=== PATIENT | female | born 1955 | race Caucasian/White ===

== ENCOUNTER 2018-01-14 14:24 | Inpatient (IN) | payer MEDICAID ==
[~2018-01-14] VITALS: Ht 154.9 cm; Wt 78.8 kg
[~2018-01-14 14:24] MED LIST: ACET1TAB12 PO; ASPI-556 PO; CLON2 PO; DIVA500T52 PO; FERR-89 PO; FOLI1 PO; GABA-531 PO; HYDR200T4 PO; LEVAHFA IH; LEVO100T14 PO; LEVO125T95 PO; METH2.5 PO; MIRT15 PO; NACL1 PO; OMEP20 PO
[2018-01-14 14:30] VITALS: BP 118/68
[2018-01-14] MEDS ORDERED: BISACODYL 10 MG RECTAL RECTAL SUPPOSITORY PR PRN (15:00)
[2018-01-14] MEDS ORDERED: SODIUM CHLORIDE 0.9% 1,000 ML IV SCH (15:00)
[2018-01-14] MEDS ORDERED: ONDANSETRON HCL 4 MG/2 ML VIAL IVP PRN (15:00)
[2018-01-14] MEDS ORDERED: MAGNESIUM HYDROXIDE SUSPENSION 30 ML UDCUP PO PRN (15:00)
[2018-01-14] MEDS ORDERED: ACETAMINOPHEN 325 MG TABLET PO PRN (15:00)
[2018-01-14] MEDS ORDERED: MORPHINE SULFATE 2 MG/ML SYRINGE IVP PRN (15:00)
[2018-01-14 16:01] VITALS: BP 121/76
[2018-01-14] MEDS: GABAPENTIN 300 MG CAPSULE PO SCH ×2 (16:17→21:31)
[2018-01-14] MEDS: HEPARIN SODIUM,PORCINE 5,000 UNITS/ML VIAL SQ SCH ×2 (16:17→23:14)
[2018-01-14] MEDS: FERROUS SULFATE 325 MG EC TABLET PO SCH (18:13)
[2018-01-14 18:30] LABS: OSMOLALITY 261 mOS/kg (270-310)
[2018-01-14 18:33] LABS: SODIUM SERUM 126 mmol/L (136-145)
[2018-01-14 20:05] VITALS: BP 122/70
[2018-01-14 20:27] LABS: OSMOLALITY,URINE 127 mOS/kg (50-1200)
[2018-01-14 20:50] LABS: SODIUM,URINE RANDOM 36 mmol/l (20-110)
[2018-01-14 21:07] LABS: CREATININE,URINE RANDOM 6.5 mg/dL (30.0-125.0); PROTEIN,URINE RANDOM < 6 mg/dL (0-11.9)
[2018-01-14] MEDS: DOCUSATE SODIUM 100 MG CAPSULE PO SCH (21:31)
[2018-01-14] MEDS: HYDROXYCHLOROQUINE SULFATE 200 MG TABLET PO SCH (21:32)
[2018-01-14] MEDS: ZOLPIDEM TARTRATE 5 MG TABLET PO PRN (21:35)
[2018-01-14] MEDS: HYDROCODONE/ACETAMINOPHEN 5-325 MG TABLET PO PRN (21:35)
[2018-01-15] VITALS (7 sets, daily range): BP systolic 118–135; BP diastolic 53–80
[2018-01-15] MEDS: OMEPRAZOLE 20 MG CAPSULE PO SCH (06:31)
[2018-01-15] MEDS: LEVOTHYROXINE SODIUM 100 MCG TABLET PO SCH (06:31)
[2018-01-15 07:46] LABS: ANION GAP 5 mmol/L (8-16); CALCIUM, TOTAL 8.6 mg/dL (8.8-10.5); CARBON DIOXIDE 26 mmol/L (22-29); CHLORIDE 94 mmol/L (98-107); GLOMERULAR FILTR. RATE CALC > 60 mL/min (>60); GLUCOSE,RANDOM 81 mg/dL (70-110); SODIUM SERUM 125 mmol/L (136-145); UREA NITROGEN, BLOOD 6 mg/dL (7-18)
[2018-01-15] MEDS: DOCUSATE SODIUM 100 MG CAPSULE PO SCH ×2 (08:35→20:14)
[2018-01-15] MEDS: HEPARIN SODIUM,PORCINE 5,000 UNITS/ML VIAL SQ SCH ×3 (08:36→23:06)
[2018-01-15] MEDS: FOLIC ACID 1 MG TABLET PO SCH (08:36)
[2018-01-15] MEDS: HYDROXYCHLOROQUINE SULFATE 200 MG TABLET PO SCH ×2 (08:36→20:14)
[2018-01-15] MEDS: ASPIRIN 81 MG CHEWABLE TABLET PO SCH (08:36)
[2018-01-15] MEDS: FERROUS SULFATE 325 MG EC TABLET PO SCH ×3 (08:36→17:59)
[2018-01-15] MEDS: GABAPENTIN 300 MG CAPSULE PO SCH ×4 (08:36→20:14)
[2018-01-15] MEDS ORDERED: PANTOPRAZOLE SODIUM 40 MG DR TABLET PO SCH (09:00)
[2018-01-15 12:46] LABS: SODIUM SERUM 127 mmol/L (136-145)
[2018-01-15] MEDS: VENLAFAXINE HCL 75 MG ER CAPSULE PO SCH (13:22)
[2018-01-15] MEDS: SODIUM CHLORIDE 1 GM TABLET PO SCH ×3 (13:23→20:14)
[2018-01-15 13:40] LABS: OSMOLALITY 270 mOS/kg (270-310)
[2018-01-15] MEDS: LORazepam 2 MG TABLET PO PRN ×2 (14:34→23:40)
[2018-01-15 15:23] LABS: SODIUM,URINE RANDOM 107 mmol/l (20-110)
[2018-01-15 15:27] LABS: OSMOLALITY,URINE 370 mOS/kg (50-1200)
[2018-01-15] MEDS: ZOLPIDEM TARTRATE 10 MG TABLET PO PRN (22:16)
[2018-01-16 03:34] VITALS: BP 112/50
[2018-01-16] MEDS: LEVOTHYROXINE SODIUM 100 MCG TABLET PO SCH (06:16)
[2018-01-16] MEDS: OMEPRAZOLE 20 MG CAPSULE PO SCH (06:16)
[2018-01-16] MEDS: LORazepam 2 MG TABLET PO PRN ×3 (06:20→23:09)
[2018-01-16] MEDS: FOLIC ACID 1 MG TABLET PO SCH (07:57)
[2018-01-16] MEDS: DOCUSATE SODIUM 100 MG CAPSULE PO SCH ×2 (07:57→20:18)
[2018-01-16] MEDS: SODIUM CHLORIDE 1 GM TABLET PO SCH ×3 (07:57→20:18)
[2018-01-16] MEDS: VENLAFAXINE HCL 75 MG ER CAPSULE PO SCH ×2 (07:57→09:00)
[2018-01-16] MEDS: HYDROXYCHLOROQUINE SULFATE 200 MG TABLET PO SCH ×2 (07:57→20:18)
[2018-01-16] MEDS: HEPARIN SODIUM,PORCINE 5,000 UNITS/ML VIAL SQ SCH ×3 (07:57→23:07)
[2018-01-16] MEDS: FERROUS SULFATE 325 MG EC TABLET PO SCH ×3 (07:57→18:01)
[2018-01-16] MEDS: GABAPENTIN 300 MG CAPSULE PO SCH ×4 (07:57→20:18)
[2018-01-16] MEDS: ASPIRIN 81 MG CHEWABLE TABLET PO SCH (07:57)
[2018-01-16 08:22] VITALS: BP 135/91
[2018-01-16 10:27] LABS: ANION GAP 6 mmol/L (8-16); CALCIUM, TOTAL 8.9 mg/dL (8.8-10.5); CARBON DIOXIDE 25 mmol/L (22-29); CHLORIDE 92 mmol/L (98-107); CREATININE 0.64 mg/dL (0.60-1.30); GLOMERULAR FILTR. RATE CALC > 60 mL/min (>60); GLUCOSE,RANDOM 95 mg/dL (70-110); POTASSIUM 4.1 mmol/L (3.5-5.1); UREA NITROGEN, BLOOD 9 mg/dL (7-18)
[2018-01-16 10:30] LABS: SODIUM SERUM 123 mmol/L (136-145)
[2018-01-16] MEDS ORDERED: TOLVAPTAN 15 MG TABLET PO ONE (11:30)
[2018-01-16 11:33] VITALS: BP 126/61
[2018-01-16] MEDS ORDERED: HALOPERIDOL LACTATE 5 MG/ML VIAL IM PRN (15:00)
[2018-01-16 15:51] VITALS: BP 146/91
[2018-01-16] MEDS: HYDROCODONE/ACETAMINOPHEN 5-325 MG TABLET PO PRN (16:05)
[2018-01-16 17:42] LABS: SODIUM,URINE RANDOM 88 mmol/l (20-110)
[2018-01-16 17:51] LABS: OSMOLALITY,URINE 373 mOS/kg (50-1200)
[2018-01-16 20:20] VITALS: BP 137/74
[2018-01-16 23:10] VITALS: BP 124/73
[2018-01-17] MEDS: ZOLPIDEM TARTRATE 10 MG TABLET PO PRN ×2 (00:41→23:28)
[2018-01-17] MEDS ORDERED: DEXTROSE 5%-WATER 1,000 ML IV SCH (03:15)
[2018-01-17 04:00] VITALS: BP 106/69
[2018-01-17] MEDS: LEVOTHYROXINE SODIUM 100 MCG TABLET PO SCH (06:16)
[2018-01-17] MEDS: OMEPRAZOLE 20 MG CAPSULE PO SCH (06:16)
[2018-01-17 07:55] VITALS: BP 121/68
[2018-01-17] MEDS: FLUoxetine HCL 20 MG CAPSULE PO SCH (08:48)
[2018-01-17] MEDS: FERROUS SULFATE 325 MG EC TABLET PO SCH ×3 (08:48→18:04)
[2018-01-17] MEDS: DOCUSATE SODIUM 100 MG CAPSULE PO SCH ×2 (08:48→20:24)
[2018-01-17] MEDS: SODIUM CHLORIDE 1 GM TABLET PO SCH ×3 (08:48→20:24)
[2018-01-17] MEDS: HYDROXYCHLOROQUINE SULFATE 200 MG TABLET PO SCH ×2 (08:49→20:24)
[2018-01-17] MEDS: ASPIRIN 81 MG CHEWABLE TABLET PO SCH (08:49)
[2018-01-17] MEDS: GABAPENTIN 300 MG CAPSULE PO SCH ×4 (08:49→20:24)
[2018-01-17] MEDS: FOLIC ACID 1 MG TABLET PO SCH (08:49)
[2018-01-17] MEDS: HEPARIN SODIUM,PORCINE 5,000 UNITS/ML VIAL SQ SCH ×3 (08:49→23:28)
[2018-01-17] MEDS: LORazepam 2 MG TABLET PO PRN ×2 (08:56→16:22)
[2018-01-17 10:48] LABS: ANION GAP 3 mmol/L (8-16); CALCIUM, TOTAL 8.9 mg/dL (8.8-10.5); CARBON DIOXIDE 28 mmol/L (22-29); CHLORIDE 100 mmol/L (98-107); CREATININE 0.71 mg/dL (0.60-1.30); GLOMERULAR FILTR. RATE CALC > 60 mL/min (>60); GLUCOSE,RANDOM 81 mg/dL (70-110); SODIUM SERUM 131 mmol/L (136-145); UREA NITROGEN, BLOOD 11 mg/dL (7-18)
[2018-01-17 13:44] LABS: BILIRUBIN,URINE NEGATIVE (NEGATIVE); GLUCOSE, URINE (UA) NEGATIVE (NEGATIVE); KETONES,URINE NEGATIVE (NEGATIVE); LEUKOCYTE ESTERASE ,URINE MODERATE (NEGATIVE); NITRATE,URINE NEGATIVE (NEGATIVE); OCCULT BLOOD,URINE NEGATIVE (NEGATIVE); PH,URINE 5.5 (5.0-8.0); PROTEIN,URINE NEGATIVE (NEGATIVE); UROBILINOGEN,URINE 0.2 mg/dL (<=1.0)
[2018-01-17 13:45] LABS: APPEARANCE,URINE HAZY (CLEAR)
[2018-01-17 13:53] LABS: BACTERIA,URINE Moderate /HPF (None Seen); RBC,URINE 0-2 /HPF (0-2); SQUAMOUS EPITHELIAL CELL,UR Few /LPF (None Seen)
[2018-01-17 15:40] VITALS: BP 120/72
[2018-01-17] MEDS: HYDROCODONE/ACETAMINOPHEN 5-325 MG TABLET PO PRN (16:24)
[2018-01-17 19:56] VITALS: BP 113/72
[2018-01-17] MEDS: CIPROFLOXACIN HCL 250 MG TABLET PO SCH (20:24)
[2018-01-17 23:15] VITALS: BP 116/74
[2018-01-18] MEDS: LORazepam 2 MG TABLET PO PRN ×2 (01:24→10:09)
[2018-01-18 03:20] VITALS: BP 124/76
[2018-01-18] MEDS: LEVOTHYROXINE SODIUM 100 MCG TABLET PO SCH (05:48)
[2018-01-18] MEDS: OMEPRAZOLE 20 MG CAPSULE PO SCH (05:48)
[2018-01-18 06:26] LABS: ANION GAP 9 mmol/L (8-16); CALCIUM, TOTAL 8.8 mg/dL (8.8-10.5); CARBON DIOXIDE 26 mmol/L (22-29); CHLORIDE 99 mmol/L (98-107); CREATININE 0.73 mg/dL (0.60-1.30); GLOMERULAR FILTR. RATE CALC > 60 mL/min (>60); GLUCOSE,RANDOM 89 mg/dL (70-110); POTASSIUM 4.4 mmol/L (3.5-5.1); SODIUM SERUM 134 mmol/L (136-145); UREA NITROGEN, BLOOD 11 mg/dL (7-18)
[2018-01-18 07:10] VITALS: BP 115/65
[2018-01-18] MEDS: FOLIC ACID 1 MG TABLET PO SCH (09:55)
[2018-01-18] MEDS: DOCUSATE SODIUM 100 MG CAPSULE PO SCH ×2 (09:55→20:07)
[2018-01-18] MEDS: FERROUS SULFATE 325 MG EC TABLET PO SCH ×3 (09:55→18:57)
[2018-01-18] MEDS: GABAPENTIN 300 MG CAPSULE PO SCH ×4 (09:55→20:06)
[2018-01-18] MEDS: HYDROXYCHLOROQUINE SULFATE 200 MG TABLET PO SCH ×2 (09:56→20:06)
[2018-01-18] MEDS: HEPARIN SODIUM,PORCINE 5,000 UNITS/ML VIAL SQ SCH ×3 (09:56→23:02)
[2018-01-18] MEDS: SODIUM CHLORIDE 1 GM TABLET PO SCH ×3 (09:56→20:06)
[2018-01-18] MEDS: FLUoxetine HCL 20 MG CAPSULE PO SCH (09:56)
[2018-01-18] MEDS: ASPIRIN 81 MG CHEWABLE TABLET PO SCH (09:56)
[2018-01-18] MEDS: CIPROFLOXACIN HCL 250 MG TABLET PO SCH ×2 (09:56→20:07)
[2018-01-18 12:30] VITALS: BP 121/69
[2018-01-18 17:00] VITALS: BP 119/71
[2018-01-18] MEDS: HYDROCODONE/ACETAMINOPHEN 5-325 MG TABLET PO PRN (19:01)
[2018-01-18 19:28] VITALS: BP 131/74
[2018-01-18] MEDS: ZOLPIDEM TARTRATE 10 MG TABLET PO PRN (23:02)
[2018-01-18 23:30] VITALS: BP 130/80
[2018-01-19] MEDS: LORazepam 2 MG TABLET PO PRN ×3 (02:44→23:06)
[2018-01-19 04:00] VITALS: BP 122/78
[2018-01-19] MEDS: OMEPRAZOLE 20 MG CAPSULE PO SCH (06:06)
[2018-01-19] MEDS: LEVOTHYROXINE SODIUM 100 MCG TABLET PO SCH (06:06)
[2018-01-19 06:39] LABS: ANION GAP 7 mmol/L (8-16); CALCIUM, TOTAL 8.6 mg/dL (8.8-10.5); CARBON DIOXIDE 25 mmol/L (22-29); CHLORIDE 100 mmol/L (98-107); CREATININE 0.68 mg/dL (0.60-1.30); GLOMERULAR FILTR. RATE CALC > 60 mL/min (>60); GLUCOSE,RANDOM 95 mg/dL (70-110); POTASSIUM 3.9 mmol/L (3.5-5.1); SODIUM SERUM 132 mmol/L (136-145); UREA NITROGEN, BLOOD 7 mg/dL (7-18)
[2018-01-19 07:37] VITALS: BP 127/65
[2018-01-19] MEDS: SODIUM CHLORIDE 1 GM TABLET PO SCH ×3 (08:47→20:14)
[2018-01-19] MEDS: FERROUS SULFATE 325 MG EC TABLET PO SCH ×3 (08:47→17:05)
[2018-01-19] MEDS: HYDROXYCHLOROQUINE SULFATE 200 MG TABLET PO SCH ×2 (08:47→20:16)
[2018-01-19] MEDS: CIPROFLOXACIN HCL 250 MG TABLET PO SCH ×2 (08:47→20:14)
[2018-01-19] MEDS: GABAPENTIN 300 MG CAPSULE PO SCH ×4 (08:47→20:14)
[2018-01-19] MEDS: FOLIC ACID 1 MG TABLET PO SCH (08:48)
[2018-01-19] MEDS: FLUoxetine HCL 20 MG CAPSULE PO SCH (08:48)
[2018-01-19] MEDS: DOCUSATE SODIUM 100 MG CAPSULE PO SCH ×2 (08:48→20:14)
[2018-01-19] MEDS: HEPARIN SODIUM,PORCINE 5,000 UNITS/ML VIAL SQ SCH ×3 (08:48→23:10)
[2018-01-19] MEDS: ASPIRIN 81 MG CHEWABLE TABLET PO SCH (08:49)
[2018-01-19 11:12] VITALS: BP 119/75
[2018-01-19 15:23] VITALS: BP 115/63
[2018-01-19 19:13] VITALS: BP 136/54
[2018-01-19] MEDS: HYDROCODONE/ACETAMINOPHEN 5-325 MG TABLET PO PRN (20:16)
[2018-01-19 23:07] VITALS: BP 122/55
[2018-01-20] MEDS: ZOLPIDEM TARTRATE 10 MG TABLET PO PRN (01:06)
[2018-01-20 04:47] VITALS: BP 112/59
[2018-01-20] MEDS: LEVOTHYROXINE SODIUM 100 MCG TABLET PO SCH (05:31)
[2018-01-20] MEDS: OMEPRAZOLE 20 MG CAPSULE PO SCH (05:31)
[2018-01-20 06:29] LABS: ANION GAP 5 mmol/L (8-16); CALCIUM, TOTAL 8.5 mg/dL (8.8-10.5); CARBON DIOXIDE 27 mmol/L (22-29); CHLORIDE 100 mmol/L (98-107); CREATININE 0.62 mg/dL (0.60-1.30); GLOMERULAR FILTR. RATE CALC > 60 mL/min (>60); GLUCOSE,RANDOM 82 mg/dL (70-110); POTASSIUM 4.1 mmol/L (3.5-5.1); SODIUM SERUM 132 mmol/L (136-145); UREA NITROGEN, BLOOD 8 mg/dL (7-18)
[2018-01-20] MEDS: FLUoxetine HCL 20 MG CAPSULE PO SCH (08:10)
[2018-01-20] MEDS: FERROUS SULFATE 325 MG EC TABLET PO SCH ×3 (08:10→17:30)
[2018-01-20] MEDS: HYDROXYCHLOROQUINE SULFATE 200 MG TABLET PO SCH ×2 (08:11→20:19)
[2018-01-20] MEDS: GABAPENTIN 300 MG CAPSULE PO SCH ×4 (08:11→20:19)
[2018-01-20] MEDS: FOLIC ACID 1 MG TABLET PO SCH (08:11)
[2018-01-20] MEDS: DOCUSATE SODIUM 100 MG CAPSULE PO SCH ×2 (08:12→20:18)
[2018-01-20] MEDS: CIPROFLOXACIN HCL 250 MG TABLET PO SCH ×2 (08:12→20:18)
[2018-01-20] MEDS: SODIUM CHLORIDE 1 GM TABLET PO SCH ×2 (08:12→20:19)
[2018-01-20] MEDS: ASPIRIN 81 MG CHEWABLE TABLET PO SCH (08:12)
[2018-01-20] MEDS: HEPARIN SODIUM,PORCINE 5,000 UNITS/ML VIAL SQ SCH ×2 (08:13→17:30)
[2018-01-20 08:16] VITALS: BP 122/82
[2018-01-20] MEDS ORDERED: METHOTREXATE SODIUM 2.5 MG TABLET PO SCH (09:00)
[2018-01-20] MEDS: LORazepam 2 MG TABLET PO PRN (11:18)
[2018-01-20 13:40] VITALS: BP 101/59
[2018-01-20 15:00] VITALS: BP 116/72
[2018-01-20 19:45] VITALS: BP_SYST 119; BP_SYST 136; BP_DIAS 51; BP_DIAS 81
[2018-01-20] MEDS ORDERED: MIRTAZAPINE 15 MG TABLET PO SCH (21:00)
[2018-01-21] VITALS (8 sets, daily range): BP systolic 96–125; BP diastolic 55–62
[2018-01-21] MEDS: HEPARIN SODIUM,PORCINE 5,000 UNITS/ML VIAL SQ SCH ×3 (01:06→16:52)
[2018-01-21] MEDS: ZOLPIDEM TARTRATE 5 MG TABLET PO PRN (01:06)
[2018-01-21] MEDS: OMEPRAZOLE 20 MG CAPSULE PO SCH (07:03)
[2018-01-21] MEDS: LEVOTHYROXINE SODIUM 100 MCG TABLET PO SCH (07:03)
[2018-01-21] MEDS: FERROUS SULFATE 325 MG EC TABLET PO SCH ×3 (08:13→17:00)
[2018-01-21] MEDS: DOCUSATE SODIUM 100 MG CAPSULE PO SCH ×2 (08:15→20:28)
[2018-01-21] MEDS: CIPROFLOXACIN HCL 250 MG TABLET PO SCH ×2 (08:15→20:28)
[2018-01-21] MEDS: HYDROXYCHLOROQUINE SULFATE 200 MG TABLET PO SCH ×2 (08:15→20:28)
[2018-01-21] MEDS: ASPIRIN 81 MG CHEWABLE TABLET PO SCH (08:15)
[2018-01-21] MEDS: FOLIC ACID 1 MG TABLET PO SCH (08:15)
[2018-01-21] MEDS: GABAPENTIN 300 MG CAPSULE PO SCH ×4 (08:16→20:28)
[2018-01-21] MEDS: SODIUM CHLORIDE 1 GM TABLET PO SCH ×2 (08:16→20:28)
[2018-01-21 09:31] LABS: ANION GAP 6 mmol/L (8-16); CALCIUM, TOTAL 8.6 mg/dL (8.8-10.5); CARBON DIOXIDE 27 mmol/L (22-29); CHLORIDE 101 mmol/L (98-107); CREATININE 0.67 mg/dL (0.60-1.30); GLOMERULAR FILTR. RATE CALC > 60 mL/min (>60); GLUCOSE,RANDOM 92 mg/dL (70-110); SODIUM SERUM 134 mmol/L (136-145); UREA NITROGEN, BLOOD 12 mg/dL (7-18)
[2018-01-21] MEDS: LORazepam 2 MG TABLET PO PRN (10:58)
[2018-01-21] MEDS ORDERED: MIRTAZAPINE 30 MG TABLET PO SCH (21:00)
[2018-01-21] MEDS: ZOLPIDEM TARTRATE 10 MG TABLET PO PRN (22:27)
[2018-01-22] MEDS: HEPARIN SODIUM,PORCINE 5,000 UNITS/ML VIAL SQ SCH ×4 (00:03→23:08)
[2018-01-22 03:43] VITALS: BP 117/59
[2018-01-22] MEDS: LEVOTHYROXINE SODIUM 100 MCG TABLET PO SCH (05:34)
[2018-01-22] MEDS: OMEPRAZOLE 20 MG CAPSULE PO SCH (05:34)
[2018-01-22 07:02] LABS: ANION GAP 8 mmol/L (8-16); CALCIUM, TOTAL 8.5 mg/dL (8.8-10.5); CARBON DIOXIDE 27 mmol/L (22-29); CHLORIDE 103 mmol/L (98-107); CREATININE 0.66 mg/dL (0.60-1.30); GLOMERULAR FILTR. RATE CALC > 60 mL/min (>60); GLUCOSE,RANDOM 91 mg/dL (70-110); POTASSIUM 3.8 mmol/L (3.5-5.1); SODIUM SERUM 138 mmol/L (136-145); UREA NITROGEN, BLOOD 12 mg/dL (7-18)
[2018-01-22 08:06] VITALS: BP 113/54
[2018-01-22] MEDS: HYDROXYCHLOROQUINE SULFATE 200 MG TABLET PO SCH ×2 (08:30→20:06)
[2018-01-22] MEDS: FERROUS SULFATE 325 MG EC TABLET PO SCH ×3 (08:30→16:54)
[2018-01-22] MEDS: ASPIRIN 81 MG CHEWABLE TABLET PO SCH (08:30)
[2018-01-22] MEDS: DOCUSATE SODIUM 100 MG CAPSULE PO SCH ×2 (08:30→20:06)
[2018-01-22] MEDS: SODIUM CHLORIDE 1 GM TABLET PO SCH ×2 (08:30→20:06)
[2018-01-22] MEDS: CIPROFLOXACIN HCL 250 MG TABLET PO SCH ×2 (08:30→20:07)
[2018-01-22] MEDS: FOLIC ACID 1 MG TABLET PO SCH (08:31)
[2018-01-22] MEDS: GABAPENTIN 300 MG CAPSULE PO SCH ×4 (08:31→20:06)
[2018-01-22 11:25] VITALS: BP 107/50
[2018-01-22 15:00] VITALS: BP 113/66
[2018-01-22 19:44] VITALS: BP 106/62
[2018-01-22] MEDS ORDERED: MIRTAZAPINE 15 MG TABLET PO SCH (21:00)
[2018-01-22] MEDS: ZOLPIDEM TARTRATE 10 MG TABLET PO PRN (22:32)
[2018-01-22 23:36] VITALS: BP 99/62
[2018-01-23 04:36] VITALS: BP 134/64
[2018-01-23] MEDS: LEVOTHYROXINE SODIUM 100 MCG TABLET PO SCH (05:44)
[2018-01-23] MEDS: OMEPRAZOLE 20 MG CAPSULE PO SCH (05:45)
[2018-01-23 06:13] LABS: ANION GAP 8 mmol/L (8-16); CALCIUM, TOTAL 9.2 mg/dL (8.8-10.5); CARBON DIOXIDE 27 mmol/L (22-29); CHLORIDE 104 mmol/L (98-107); CREATININE 0.78 mg/dL (0.60-1.30); GLOMERULAR FILTR. RATE CALC > 60 mL/min (>60); GLUCOSE,RANDOM 85 mg/dL (70-110); POTASSIUM 4.2 mmol/L (3.5-5.1); SODIUM SERUM 139 mmol/L (136-145); UREA NITROGEN, BLOOD 17 mg/dL (7-18)
[2018-01-23 08:21] VITALS: BP 118/61
[2018-01-23] MEDS: FERROUS SULFATE 325 MG EC TABLET PO SCH ×2 (08:46→14:02)
[2018-01-23] MEDS: HEPARIN SODIUM,PORCINE 5,000 UNITS/ML VIAL SQ SCH (08:46)
[2018-01-23] MEDS: HYDROXYCHLOROQUINE SULFATE 200 MG TABLET PO SCH (08:46)
[2018-01-23] MEDS: GABAPENTIN 300 MG CAPSULE PO SCH ×2 (08:46→14:02)
[2018-01-23] MEDS: DOCUSATE SODIUM 100 MG CAPSULE PO SCH (08:47)
[2018-01-23] MEDS: SODIUM CHLORIDE 1 GM TABLET PO SCH (08:47)
[2018-01-23] MEDS: FOLIC ACID 1 MG TABLET PO SCH (08:47)
[2018-01-23] MEDS: CIPROFLOXACIN HCL 250 MG TABLET PO SCH (08:48)
[2018-01-23] MEDS: ASPIRIN 81 MG CHEWABLE TABLET PO SCH (08:48)
[2018-01-23 11:48] VITALS: BP 113/68
[2018-01-23] MEDS: LORazepam 2 MG TABLET PO PRN (14:03)
[2018-01-23] MEDS ORDERED: CIPROFLAXACIN PO (15:20)
[2018-01-23] MEDS ORDERED: SODIUM CHLORIDE PO (15:23)
[2018-01-23 15:45] VITALS: BP 109/75
== END 2018-01-23 16:35 | disposition home or self-care (01) | DRG 424 ==
LOC: 6N 14:31
PROVIDERS: ADMIT Internal Medicine; ATTEND Internal Medicine
DX: E22.2 Syndrome of inappropriate secretion of antidiuretic hormone (principal); R45.851 Suicidal ideations; F33.2 Major depressive disorder, recurrent severe without psychotic features; I50.9 Heart failure, unspecified; I11.0 Hypertensive heart disease with heart failure; M32.9 Systemic lupus erythematosus, unspecified; D64.9 Anemia, unspecified; E03.9 Hypothyroidism, unspecified; E78.5 Hyperlipidemia, unspecified; F20.9 Schizophrenia, unspecified; I73.9 Peripheral vascular disease, unspecified; J45.909 Unspecified asthma, uncomplicated; F41.9 Anxiety disorder, unspecified; G47.00 Insomnia, unspecified; K21.9 Gastro-esophageal reflux disease without esophagitis; Z88.0 Allergy status to penicillin; Z79.899 Other long term (current) drug therapy; T43.225A Adverse effect of selective serotonin reuptake inhibitors, initial encounter
CPT/HCPCS: 82570; 83930; 83935; 84156; 84295; 84300; 87086; J1644; J2270; J2405; J7030; J7060; J8610

== ENCOUNTER 2018-02-18 14:34 | Emergency (ER) | payer MEDICAID ==
[~2018-02-18] VITALS: Ht 154.9 cm; Wt 80.0 kg
[~2018-02-18 14:34] MED LIST changes: -ACET1TAB12 PO; +CIPROFLAXACIN PO; -CLON2 PO; -DIVA500T52 PO; -LEVO100T14 PO; -NACL1 PO
[2018-02-18 16:17] LABS: BASOPHILS % (AUTO) 0.6 % (0.0-2.0); EOSINOPHILS % (AUTO) 1.6 % (1.0-6.0); HEMATOCRIT 36.8 % (36-46); HEMOGLOBIN 12.4 g/dL (12.0-16.0); LYMPHOCYTES # (AUTO) 0.8 K/uL (1.0-4.8); LYMPHOCYTES % (AUTO) 18.6 % (22.0-44.0); MEAN CORPUSCULAR HEMOGLOBIN 32.1 pg (26.0-34.0); MEAN CORPUSCULAR HGB CONC 33.7 G/dL (31.0-37.0); MEAN CORPUSCULAR VOLUME 95 fL (80-100); MONOCYTES # (AUTO) 0.2 K/uL (0.1-1.0); MONOCYTES % (AUTO) 5.5 % (2.0-9.0); NEUTROPHILS # (AUTO) 3.2 K/uL (1.8-7.7); NEUTROPHILS % (AUTO) 73.7 % (40.0-70.0); PLATELET COUNT (AUTO) 157 K/uL (150-450); RED BLOOD CELL COUNT(AUTO) 3.86 MIL/uL (4.00-5.20); RED CELL DISTRIBUTION WIDTH 14.8 % (11.5-14.5)
[2018-02-18 16:29] LABS: ANION GAP 11 mmol/L (8-16); CALCIUM, TOTAL 8.6 mg/dL (8.8-10.5); CARBON DIOXIDE 24 mmol/L (22-29); CHLORIDE 101 mmol/L (98-107); CREATININE 0.91 mg/dL (0.60-1.30); GLOMERULAR FILTR. RATE CALC > 60 mL/min (>60); GLUCOSE,RANDOM 98 mg/dL (70-110); POTASSIUM 3.8 mmol/L (3.5-5.1); SODIUM SERUM 136 mmol/L (136-145); UREA NITROGEN, BLOOD 12 mg/dL (7-18)
[2018-02-18 16:38] LABS: ALANINE AMINOTRANSFERASE 22 U/L (12-78); ALBUMIN 3.4 g/dL (3.4-5.0); ALKALINE PHOSPHATASE 97 U/L (46-116); ASPARTATE AMINOTRANSFERASE 25 U/L (15-37); BILIRUBIN,TOTAL 0.3 mg/dL (0.1-1.0); LIPASE 121 U/L (73-393)
[2018-02-18 17:25] LABS: APPEARANCE,URINE CLOUDY (CLEAR); BILIRUBIN,URINE NEGATIVE (NEGATIVE); GLUCOSE, URINE (UA) NEGATIVE (NEGATIVE); KETONES,URINE NEGATIVE (NEGATIVE); LEUKOCYTE ESTERASE ,URINE SMALL (NEGATIVE); NITRATE,URINE NEGATIVE (NEGATIVE); OCCULT BLOOD,URINE NEGATIVE (NEGATIVE); PROTEIN,URINE TRACE (NEGATIVE); UROBILINOGEN,URINE 0.2 mg/dL (<=1.0)
[2018-02-18 17:34] LABS: BACTERIA,URINE Moderate /HPF (None Seen); RBC,URINE None Seen /HPF (0-2)
[2018-02-18 17:35] LABS: MUCUS,URINE Few LPF (None Seen); SQUAMOUS EPITHELIAL CELL,UR Moderate /LPF (None Seen)
[2018-02-18] MEDS ORDERED: IOVERSOL 350 MG/ML 100 ML VIAL ONE (18:27)
[2018-02-18] MEDS ORDERED: SODIUM CHLORIDE 0.9% 100 ML ONE (18:28)
[2018-02-18] MEDS ORDERED: MORPHINE SULFATE 4 MG/ML SYRINGE IVP ONE (19:30)
[2018-02-18 20:28] VITALS: BP 112/62
== END 2018-02-18 20:30 | disposition home or self-care (01) ==
LOC: EMS 14:36
DX: N39.0 Urinary tract infection, site not specified (principal); K44.9 Diaphragmatic hernia without obstruction or gangrene; I26.99 Other pulmonary embolism without acute cor pulmonale; F31.9 Bipolar disorder, unspecified; I11.0 Hypertensive heart disease with heart failure; I50.9 Heart failure, unspecified; K21.9 Gastro-esophageal reflux disease without esophagitis; F20.9 Schizophrenia, unspecified; M19.90 Unspecified osteoarthritis, unspecified site; Z79.82 Long term (current) use of aspirin; Z88.0 Allergy status to penicillin
CPT/HCPCS: 36415; 71275; 80053; 81001; 83690; 83880; 84484; 85025; 85379; 87086; 93005; 96374; 99285; J2270; J7050; Q9967

== ENCOUNTER 2018-06-30 15:34 | Emergency (ER) | payer MEDICAID ==
[~2018-06-30] VITALS: Ht 154.9 cm; Wt 70.9 kg
[2018-06-30] MEDS ORDERED: DEXAMETHASONE SOD PHOS 4 MG/ML 5 ML VIAL IM ONE (16:30)
[2018-06-30] MEDS ORDERED: HYDROCODONE/ACETAMINOPHEN 5-325 MG TABLET PO ONE (16:30)
[2018-06-30 18:02] VITALS: BP 118/76
== END 2018-06-30 18:06 | disposition home or self-care (01) ==
LOC: EMS 15:35
DX: G89.29 Other chronic pain (principal); M79.10 Myalgia, unspecified site; M10.9 Gout, unspecified; I11.0 Hypertensive heart disease with heart failure; I50.9 Heart failure, unspecified; F31.9 Bipolar disorder, unspecified; F20.9 Schizophrenia, unspecified; M19.90 Unspecified osteoarthritis, unspecified site; Z79.82 Long term (current) use of aspirin
CPT/HCPCS: 96372; 99283; J1100

== ENCOUNTER 2018-08-30 11:12 | Emergency (ER) | payer MEDICAID ==
[~2018-08-30] VITALS: Ht 154.9 cm; Wt 90.9 kg
[2018-08-30] MEDS ORDERED: HYDROCODONE/ACETAMINOPHEN 5-325 MG TABLET PO ONE (12:45)
[2018-08-30] MEDS ORDERED: LEVO100 PO (12:48)
[2018-08-30 12:49] LABS: BILIRUBIN,URINE NEGATIVE (NEGATIVE); GLUCOSE, URINE (UA) NEGATIVE (NEGATIVE); KETONES,URINE NEGATIVE (NEGATIVE); NITRATE,URINE NEGATIVE (NEGATIVE); OCCULT BLOOD,URINE NEGATIVE (NEGATIVE); PROTEIN,URINE NEGATIVE (NEGATIVE); UROBILINOGEN,URINE 0.2 mg/dL (<=1.0)
[2018-08-30 12:58] LABS: LEUKOCYTE ESTERASE ,URINE TRACE (NEGATIVE)
[2018-08-30 12:59] LABS: APPEARANCE,URINE HAZY (CLEAR); BACTERIA,URINE None Seen /HPF (None Seen); RBC,URINE None Seen /HPF (0-2); SQUAMOUS EPITHELIAL CELL,UR Rare /LPF (None Seen); WBC,URINE 0-2 /HPF (0-5)
[2018-08-30 13:00] VITALS: BP 115/67
== END 2018-08-30 13:41 | disposition home or self-care (01) ==
LOC: EMS 11:12
DX: G89.29 Other chronic pain (principal); M25.511 Pain in right shoulder; M25.512 Pain in left shoulder; M25.551 Pain in right hip; M25.552 Pain in left hip; I11.0 Hypertensive heart disease with heart failure; I50.9 Heart failure, unspecified; K21.9 Gastro-esophageal reflux disease without esophagitis; F31.9 Bipolar disorder, unspecified; F20.9 Schizophrenia, unspecified; M19.90 Unspecified osteoarthritis, unspecified site; Z76.0 Encounter for issue of repeat prescription; Z88.0 Allergy status to penicillin; Z79.82 Long term (current) use of aspirin

== ENCOUNTER 2018-09-06 21:38 | Emergency (ER) | payer MEDICAID ==
[~2018-09-06] VITALS: Ht 154.9 cm; Wt 81.8 kg
[~2018-09-06 21:38] MED LIST changes: -CIPROFLAXACIN PO; +LEVO100 PO; -LEVO125T95 PO
[2018-09-06] MEDS ORDERED: RANI150T7 PO (21:56)
[2018-09-06] MEDS ORDERED: METHOTREXATE SODIUM 2.5 MG TABLET PO ONE (23:45)
[2018-09-06] MEDS ORDERED: MIRTAZAPINE 15 MG TABLET PO ONE (23:45)
[2018-09-07 01:27] VITALS: BP 118/66
== END 2018-09-07 02:03 | disposition home or self-care (01) ==
LOC: EMS 21:39
DX: F41.9 Anxiety disorder, unspecified (principal); F32.9 Major depressive disorder, single episode, unspecified; M32.9 Systemic lupus erythematosus, unspecified; I11.0 Hypertensive heart disease with heart failure; I50.9 Heart failure, unspecified; F20.9 Schizophrenia, unspecified; Z76.0 Encounter for issue of repeat prescription; Z79.82 Long term (current) use of aspirin; Z79.899 Other long term (current) drug therapy
CPT/HCPCS: 71045; 93005; 99284; J8610

== ENCOUNTER 2021-02-15 20:45 | Inpatient (IN) | payer MEDICARE, MEDICAID ==
[~2021-02-15] VITALS: Ht 154.9 cm; Wt 77.3 kg
[~2021-02-15 20:45] MED LIST changes: -FERR-89 PO; +FOLI-130 PO; -FOLI1 PO; +GABA-1181 PO; -GABA-531 PO; +HYDR200T38 PO; -HYDR200T4 PO; +MIRT-89 PO; -MIRT15 PO; -OMEP20 PO; +RANI150T7 PO
[2021-02-16] MEDS ORDERED: PRED10 PO (00:02)
[2021-02-16] MEDS ORDERED: TRAZ-257 PO (00:02)
[2021-02-16] MEDS ORDERED: OMEP20 PO (00:02)
[2021-02-16] MEDS ORDERED: VENL-67 PO (00:02)
[2021-02-16] MEDS ORDERED: FLUT16H NASAL (00:02)
[2021-02-16] MEDS ORDERED: HYDR-4069 PO (00:02)
[2021-02-16] MEDS ORDERED: LOSA25TA21 PO (00:02)
[2021-02-16] MEDS ORDERED: BUSP10TA23 PO (00:02)
[2021-02-16 00:33] LABS: BASOPHILS % (AUTO) 0.7 % (0.0-2.0); EOSINOPHILS % (AUTO) 2.8 % (1.0-6.0); HEMATOCRIT 38.9 % (36-46); HEMOGLOBIN 12.8 g/dL (12.0-16.0); LYMPHOCYTES # (AUTO) 1.3 K/uL (1.0-4.8); LYMPHOCYTES % (AUTO) 31.6 % (22.0-44.0); MEAN CORPUSCULAR HEMOGLOBIN 31.2 pg (26.0-34.0); MEAN CORPUSCULAR HGB CONC 32.9 G/dL (31.0-37.0); MEAN CORPUSCULAR VOLUME 95 fL (80-100); MONOCYTES # (AUTO) 0.6 K/uL (0.1-1.0); MONOCYTES % (AUTO) 13.4 % (2.0-9.0); NEUTROPHILS # (AUTO) 2.1 K/uL (1.8-7.7); NEUTROPHILS % (AUTO) 51.5 % (40.0-70.0); PLATELET COUNT (AUTO) 212 K/uL (150-450); RED CELL DISTRIBUTION WIDTH 14.5 % (11.5-14.5)
[2021-02-16 00:45] LABS: ANION GAP 9 mmol/L (8-16); CALCIUM, TOTAL 8.8 mg/dL (8.8-10.5); CARBON DIOXIDE 29 mmol/L (22-29); CHLORIDE 97 mmol/L (98-107); CREATININE 0.91 mg/dL (0.60-1.30); GLOMERULAR FILTR. RATE CALC > 60 mL/min (>60); GLUCOSE,RANDOM 74 mg/dL (70-110); POTASSIUM 3.9 mmol/L (3.5-5.1); SODIUM SERUM 135 mmol/L (136-145); UREA NITROGEN, BLOOD 7 mg/dL (7-18)
[2021-02-16 00:51] LABS: ALANINE AMINOTRANSFERASE 14 U/L (12-78); ALKALINE PHOSPHATASE 95 U/L (46-116); ASPARTATE AMINOTRANSFERASE 26 U/L (15-37); BILIRUBIN,TOTAL 0.3 mg/dL (0.1-1.0); TOTAL PROTEIN, SERUM 6.4 g/dL (6.4-8.2)
[2021-02-16] MEDS ORDERED: LORazepam 2 MG TABLET PO PRN (04:15)
[2021-02-16] MEDS ORDERED: HALOPERIDOL 5 MG TABLET PO PRN (04:15)
[2021-02-16 05:50] LABS: APPEARANCE,URINE CLOUDY (CLEAR); BILIRUBIN,URINE NEGATIVE (NEGATIVE); GLUCOSE, URINE (UA) NEGATIVE (NEGATIVE); KETONES,URINE NEGATIVE (NEGATIVE); LEUKOCYTE ESTERASE ,URINE LARGE (NEGATIVE); NITRATE,URINE NEGATIVE (NEGATIVE); OCCULT BLOOD,URINE TRACE (NEGATIVE); PROTEIN,URINE NEGATIVE (NEGATIVE); UROBILINOGEN,URINE 0.2 mg/dL (<=1.0)
[2021-02-16 05:55] LABS: BACTERIA,URINE Many /HPF (None Seen); SQUAMOUS EPITHELIAL CELL,UR Few /LPF (None Seen); WBC,URINE 51-100 /HPF (0-5)
[2021-02-16 05:56] LABS: AMPHET/METH SCREEN,URINE NEGATIVE (NEGATIVE); BARBITURATE SCREEN, URINE NEGATIVE (NEGATIVE); BENZODIAZEPINES SCREEN,URINE NEGATIVE (NEGATIVE); CANNABINOID SCREEN,URINE NEGATIVE (NEGATIVE); COCAINE SCREEN,URINE NEGATIVE (NEGATIVE); METHADONE SCREEN, URINE NEGATIVE (NEGATIVE); OPIATE SCREEN,URINE POSITIVE (NEGATIVE)
[2021-02-16 05:58] LABS: PHENCYCLIDINE SCREEN,URINE NEGATIVE (NEGATIVE)
[2021-02-16 13:58] VITALS: BP 116/53
[2021-02-16] MEDS ORDERED: PNEUMOCOCCAL VACCINE POLYVALENT 0.5 ML VIAL [PPSV23] IM. ONE (14:00)
[2021-02-16] MEDS ORDERED: BELI200A SQ (15:24)
[2021-02-16] MEDS ORDERED: GABA-1201 PO (15:24)
[2021-02-16] MEDS ORDERED: CARV3.1231 PO (15:24)
[2021-02-16] MEDS ORDERED: LEVO75 PO (15:24)
[2021-02-16] MEDS ORDERED: ASPI-1444 PO (15:24)
[2021-02-16 16:04] VITALS: BP 135/78
[2021-02-16] MEDS: HYDROXYCHLOROQUINE SULFATE 200 MG TABLET PO SCH (17:26)
[2021-02-16] MEDS: HYDROCODONE/ACETAMINOPHEN 10-325 MG TABLET PO SCH (17:27)
[2021-02-16] MEDS: ZOLPIDEM TARTRATE 10 MG TABLET PO PRN (21:09)
[2021-02-17] VITALS: BP 145/60
[2021-02-17] MEDS: HYDROCODONE/ACETAMINOPHEN 10-325 MG TABLET PO SCH ×5 (00:10→23:58)
[2021-02-17 01:17] LABS: CHOL/HDL RATIO 3.6 (3.9-5.7); CHOLESTEROL 166 mg/dL (131-200); HDL CHOLESTEROL 46 mg/dL (40-60); LDL CHOL (CALC.) 97 mg/dL (0-130); TRIGLYCERIDES 117 mg/dL (15-150)
[2021-02-17] MEDS: LEVOTHYROXINE SODIUM 100 MCG TABLET PO SCH (06:03)
[2021-02-17 06:48] LABS: COVID AG,FIA SOURCE NASAL SWAB
[2021-02-17] MEDS ORDERED: DOCUSATE SODIUM 100 MG CAPSULE PO PRN (08:45)
[2021-02-17] MEDS ORDERED: MAGNESIUM HYDROXIDE SUSPENSION 30 ML UDCUP PO PRN (08:45)
[2021-02-17] MEDS ORDERED: ACETAMINOPHEN 325 MG TABLET PO PRN (08:45)
[2021-02-17] MEDS ORDERED: LOPERAMIDE HCL 2 MG CAPSULE PO PRN (08:45)
[2021-02-17] MEDS ORDERED: MAG HYDROX/AL HYDROX/SIMETH ES 30 ML SUSPENSION UDCUP PO PRN (08:45)
[2021-02-17] MEDS ORDERED: IBUPROFEN 400 MG TABLET PO PRN (08:45)
[2021-02-17] MEDS ORDERED: CloNIDine HCL 0.1 MG TABLET PO PRN (08:45)
[2021-02-17] MEDS ORDERED: PETROLATUM,WHITE 28 GM JELLY TP PRN (08:45)
[2021-02-17] MEDS ORDERED: NICOTINE 14 MG/24 HOUR PATCH TD PRN (08:45)
[2021-02-17] MEDS ORDERED: ONDANSETRON HCL 4 MG TABLET PO PRN (08:45)
[2021-02-17] MEDS ORDERED: GuaiFENesin/D-METHORPHAN [SUGAR-FREE] 200-20MG/10 ML SYRUP UDCUP PO PRN (08:45)
[2021-02-17] MEDS ORDERED: ALBUTEROL SULFATE HFA 90 MCG/PUFF 8 GM INHALER IH PRN (08:45)
[2021-02-17] MEDS: FLUTICASONE PROPIONATE 50 MCG/SPRAY 16 GM NASAL SPRAY NASAL SCH (09:00)
[2021-02-17] MEDS: LEVALBUTEROL TARTRATE HFA 45 MCG/PUFF 15 GM INHALER IH SCH (09:00)
[2021-02-17] MEDS: OMEPRAZOLE 20 MG CAPSULE PO SCH (09:35)
[2021-02-17] MEDS: HYDROXYCHLOROQUINE SULFATE 200 MG TABLET PO SCH ×2 (09:35→17:08)
[2021-02-17] MEDS: ASPIRIN 81 MG DR TABLET PO SCH (09:35)
[2021-02-17] MEDS: LOSARTAN POTASSIUM 25 MG TABLET PO SCH (09:35)
[2021-02-17] MEDS: FOLIC ACID 1 MG TABLET PO SCH (09:35)
[2021-02-17] MEDS: PredniSONE 10 MG TABLET PO SCH (09:35)
[2021-02-17 09:36] VITALS: BP 116/59
[2021-02-17] MEDS: BusPIRone HCL 10 MG TABLET PO SCH ×3 (09:36→16:58)
[2021-02-17] MEDS: VENLAFAXINE HCL 75 MG ER CAPSULE PO SCH (09:56)
[2021-02-17] MEDS: GABAPENTIN 400 MG CAPSULE PO SCH ×3 (09:56→16:58)
[2021-02-17 16:05] VITALS: BP 128/72
[2021-02-17] MEDS: MIRTAZAPINE 15 MG TABLET PO SCH (21:06)
[2021-02-17] MEDS: TraZODone HCL 100 MG TABLET PO SCH (21:07)
[2021-02-17] MEDS: ZOLPIDEM TARTRATE 10 MG TABLET PO PRN (21:56)
[2021-02-18] MEDS: HYDROCODONE/ACETAMINOPHEN 10-325 MG TABLET PO SCH ×3 (06:04→18:38)
[2021-02-18] MEDS: LEVOTHYROXINE SODIUM 100 MCG TABLET PO SCH (06:04)
[2021-02-18] MEDS: LEVALBUTEROL TARTRATE HFA 45 MCG/PUFF 15 GM INHALER IH SCH (09:00)
[2021-02-18] MEDS: FLUTICASONE PROPIONATE 50 MCG/SPRAY 16 GM NASAL SPRAY NASAL SCH (09:00)
[2021-02-18 09:05] VITALS: BP 102/59
[2021-02-18] MEDS: VENLAFAXINE HCL 75 MG ER CAPSULE PO SCH (09:11)
[2021-02-18] MEDS: GABAPENTIN 400 MG CAPSULE PO SCH ×3 (09:11→17:27)
[2021-02-18] MEDS: OMEPRAZOLE 20 MG CAPSULE PO SCH (09:11)
[2021-02-18] MEDS: BusPIRone HCL 10 MG TABLET PO SCH ×3 (09:12→17:25)
[2021-02-18] MEDS: ASPIRIN 81 MG DR TABLET PO SCH (09:12)
[2021-02-18] MEDS: FOLIC ACID 1 MG TABLET PO SCH (09:12)
[2021-02-18] MEDS: LOSARTAN POTASSIUM 25 MG TABLET PO SCH (09:12)
[2021-02-18] MEDS: PredniSONE 10 MG TABLET PO SCH (09:13)
[2021-02-18] MEDS: HYDROXYCHLOROQUINE SULFATE 200 MG TABLET PO SCH ×2 (09:13→17:25)
[2021-02-18 16:00] VITALS: BP 144/92
[2021-02-18] MEDS ORDERED: DENTURE ADHESIVE 68 GM CREAM DT PRN (17:30)
[2021-02-18] MEDS: MIRTAZAPINE 15 MG TABLET PO SCH (21:00)
[2021-02-18] MEDS: TraZODone HCL 100 MG TABLET PO SCH (21:00)
[2021-02-18] MEDS: ZOLPIDEM TARTRATE 10 MG TABLET PO PRN (21:50)
[2021-02-19] MEDS: HYDROCODONE/ACETAMINOPHEN 10-325 MG TABLET PO SCH ×2 (00:07→06:40)
[2021-02-19 04:01] VITALS: BP 136/72
[2021-02-19] MEDS: LEVOTHYROXINE SODIUM 100 MCG TABLET PO SCH (06:44)
[2021-02-19] MEDS: FOLIC ACID 1 MG TABLET PO SCH (08:46)
[2021-02-19] MEDS: GABAPENTIN 400 MG CAPSULE PO SCH ×3 (08:46→16:08)
[2021-02-19] MEDS: ASPIRIN 81 MG DR TABLET PO SCH (08:46)
[2021-02-19] MEDS: OMEPRAZOLE 20 MG CAPSULE PO SCH (08:46)
[2021-02-19] MEDS: VENLAFAXINE HCL 75 MG ER CAPSULE PO SCH (08:46)
[2021-02-19] MEDS: HYDROXYCHLOROQUINE SULFATE 200 MG TABLET PO SCH ×2 (08:47→16:08)
[2021-02-19] MEDS: BusPIRone HCL 10 MG TABLET PO SCH ×3 (08:47→16:08)
[2021-02-19] MEDS: LOSARTAN POTASSIUM 25 MG TABLET PO SCH (08:47)
[2021-02-19] MEDS: PredniSONE 10 MG TABLET PO SCH ×2 (08:59→09:00)
[2021-02-19] MEDS: FLUTICASONE PROPIONATE 50 MCG/SPRAY 16 GM NASAL SPRAY NASAL SCH (09:53)
[2021-02-19] MEDS: LEVALBUTEROL TARTRATE HFA 45 MCG/PUFF 15 GM INHALER IH SCH (09:53)
[2021-02-19 09:54] VITALS: BP 106/70
[2021-02-19] MEDS ORDERED: HYDROCODONE/ACETAMINOPHEN 5-325 MG TABLET PO PRN (10:00)
[2021-02-19 12:32] VITALS: BP 109/58
[2021-02-19 13:32] VITALS: BP 150/79
[2021-02-19 16:00] VITALS: BP 105/71
[2021-02-19] MEDS ORDERED: LEVO100 PO (18:39)
[2021-02-19] MEDS ORDERED: TRAZ-257 PO (18:41)
[2021-02-23] MEDS ORDERED: METHOTREXATE SODIUM 2.5 MG TABLET PO SCH (09:00)
== END 2021-02-19 20:05 | disposition home or self-care (01) | DRG 750 ==
LOC: EMS 20:50 → 3EI 02-16 09:05
PROVIDERS: ADMIT Psychiatry & Neurology Child & Adolescent Psychiatry; ATTEND Psychiatry & Neurology Child & Adolescent Psychiatry
DX: F25.1 Schizoaffective disorder, depressive type (principal); R45.851 Suicidal ideations; I50.9 Heart failure, unspecified; I11.0 Hypertensive heart disease with heart failure; M32.9 Systemic lupus erythematosus, unspecified; E03.9 Hypothyroidism, unspecified; E78.5 Hyperlipidemia, unspecified; J44.9 Chronic obstructive pulmonary disease, unspecified; K21.9 Gastro-esophageal reflux disease without esophagitis; Z20.822 Contact with and (suspected) exposure to COVID-19; F31.9 Bipolar disorder, unspecified; I73.9 Peripheral vascular disease, unspecified; M19.90 Unspecified osteoarthritis, unspecified site; F41.0 Panic disorder [episodic paroxysmal anxiety]; Z79.899 Other long term (current) drug therapy; Z79.82 Long term (current) use of aspirin
CPT/HCPCS: 80053; 80061; 81001; 85025; 87077; 87086; 87186; 99285; G0480; J3535; Q0162